=== PATIENT | female | born 1990 | race Caucasian/White ===

== ENCOUNTER 2016-11-29 10:22 | Emergency (ER) | payer MEDICAID ==
--- NOTE | ~2016-11-29 | ER ---
PATIENT'S NAME: LINUS RIVASA [facility] AGE: 25 Y [address] ROOM: [place] [id number] LOCATION: [facility] ADMIT DATE: 11/29/2016 ER/Outpatient Report DISCHARGE DATE: 11/29/2016 FAMILY PHYSICIAN: Sonya Posey MD ATTENDING PHYSICIAN: Philomena Carnes Time of Arrival: 1022 hours. Time Seen: 1036 hours. IDENTIFICATION: A 25-year-old female. CHIEF COMPLAINT: Upper abdominal pain. She has had pain around the lower ribs and upper abdomen, starting on the right side this morning, around 5:30 woke her from sleep, 12/30, radiated to the left. She describes it as a sharp pain, initially constant, now intermittent, rates it as a 7-1/2 out of 10. Some nausea. No vomiting. No diarrhea or constipation. No blood in her stools. No dysuria. She had a UTI, treated 2 months ago. Last menstrual period the last day is now. She is a G2, P2. She has had two prior sections. Children ages 7 and 2. She was seen for this before with no workup or x-rays. PAST MEDICAL HISTORY: ALLERGIES: NO KNOWN DRUG ALLERGIES. CURRENT MEDICATIONS: None. MEDICAL PROBLEMS: Recent UTI 2 months ago. PRIOR SURGERIES: T and A, two sections. SOCIAL HISTORY: The patient lives in [place]. Tobacco use, denies. Alcohol use, denies. Drug use, denies. REVIEW OF SYSTEMS: All systems reviewed and negative other than what is noted in the HPI. Last menstrual period is now. [facility]GE[facility] 25 Y [address] ROOM: [place], [place] [address] LOCATION: [facility] ADMIT DATE: 11/29/2016 ER/Outpatient Report DISCHARGE DATE: 11/29/2016 FAMILY PHYSICIAN: Sonya Posey MD ATTENDING PHYSICIAN: Philomena Carnes FAMILY HISTORY: Father with diabetes. Mother and father with hypertension. PHYSICAL EXAM: VITAL SIGNS: Height 5 feet 2 inches and weight 54 kg. Blood pressure 119/94, pulse 70, respirations 16, temperature 97.7, and saturations 99% on room air. GENERAL: A 25-year-old female, in no acute distress. HEENT: Unremarkable. LUNGS: Clear to auscultation. Breath sounds are equal. HEART: Regular rate and rhythm. No murmur, rub, or gallop. ABDOMEN: Bowel sounds present. Soft, nondistended. No hepatosplenomegaly. No palpable masses. Nontender. SKIN: Sunsites, warm, and dry. No lesions or rashes noted. NEURO: The patient is alert and oriented x4. Cranial nerves 2 through 12 grossly intact. Motor strength 5/5 throughout. Sensation is intact to light touch. The patient did not want any pain medication. We did give her a GI cocktail with improvement of her pain. Three-view of abdomen, no free air. Lung kiran are clear. No obstruction. Moderate stool present. Pending Radiology over-read. Hemoglobin 13.3, hematocrit 41.5, platelets 241, white count 5.8 with a normal differential. UA is negative. Urine hCG negative. Sodium 141, potassium 4.5, chloride 107, CO2 28, BUN 8, creatinine 0.8, blood sugar 78. Liver enzymes normal. Amylase 47, lipase 174. IMPRESSION: Abdominal pain. No acute etiology identified on examination, laboratory testing, or x-ray. Pain did improve with a GI cocktail. She will be discharged home. [id number] Prilosec 20 mg daily. Diet as tolerated and follow up with Dr. Posey next week. Follow up sooner if any problems or concerns. The patient understands and agrees, and all questions have been answered. PHILOMENA CARNES MD CAR/modl /[id number] d: 11/29/16 1519 t: 11/30/16 0726, OUTPATIENT REPORT
[2016-11-29 11:08] LABS: BASOPHIL % 0.5 %; EOSINOPHIL # 0.1 K/uL (0.0-0.5); HEMATOCRIT 41.5 % (33.0-46.0); HEMOGLOBIN 13.3 g/dL (11.0-15.0); IMMATURE GRANULOCYTE % 0.2 %; LYMPHOCYTE # 1.9 K/uL (0.8-4.0); LYMPHOCYTE % 32.7 %; MCH 27.1 pg (27.0-34.0); MCV 84.5 fl (83.0-98.0); MONOCYTE # 0.4 K/uL (0.0-1.0); MONOCYTE % 7.7 %; MPV 9.9 fl (9.4-12.4); NEUTROPHIL # (ANC) 3.3 K/uL (1.8-7.8); NEUTROPHIL % 57.9 %; NRBC % 0 /100WBC (0-0.00); PLATELET COUNT 241 K/uL (150-450); RBC 4.91 M/uL (3.50-5.00); RDW-CV 14.3 % (11.9-14.6); WBC 5.8 K/uL (4.0-11.0)
[2016-11-29 11:24] LABS: ALBUMIN 3.9 gm/dL (3.5-5.0); ALK PHOS 61 IU/L (33-138); ALT 14 IU/L (12-78); ANION GAP 10.5 (10.0-19.0); AST 10 IU/L (10-40); BLOOD UREA NITROGEN 8 mg/dL (6-24); CHLORIDE 107 mMol/L (96-110); CO2 28 mMol/L (22-32); CREATININE 0.8 mg/dL (0.5-1.1); POTASSIUM 4.5 mMol/L (3.7-5.1); SODIUM 141 mMol/L (135-145); TOTAL BILIRUBIN 0.4 mg/dL (0.0-1.5); TOTAL PROTEIN 8.4 g/dL (6.0-8.4)
[2016-11-29 11:39] LABS: BILIRUBIN URINE NEGATIVE (NEGATIVE); BLOOD URINE NEGATIVE /UL (NEGATIVE); COLOR URINE YELLOW (YELLOW); GLUCOSE URINE NEGATIVE (NEGATIVE); KETONE URINE NEGATIVE (NEGATIVE); LEUKOCYTES URINE NEGATIVE /UL (NEGATIVE); NITRITE URINE NEGATIVE (NEGATIVE); PROTEIN URINE NEGATIVE (NEGATIVE); TURBIDITY URINE CLEAR (CLEAR); UROBILINOGEN URINE NORMAL (NORMAL)
== END 2016-11-29 13:24 | disposition disaster alternative care site (69) ==
LOC: GMED 10:22
PROVIDERS: Family Medicine
DX: R10.11 Right upper quadrant pain (principal); R10.31 Right lower quadrant pain